=== PATIENT | male | born 2000 | race Caucasian/White ===

== ENCOUNTER 2018-10-12 05:06 | Emergency (ER) | payer OTHER, SELFPAY ==
--- NOTE | 2018-10-12 05:08 | W.ED.GENAD ---
Discharge Plan Disposition Patient Disposition: HOME Condition: Stable Discharge Details Chief Complaint: Laceration Clinical Impression: Laceration of forearm, left Primary Care Provider: Myrtle Muñoz ED Provider: Emanuel Sexton Home Meds and New Rx's Prescriptions: No Action No Known Home Meds RF: 0 Discharge Instructions Instructions: Laceration (ED) Additional Instructions: return to the emergency department in 7-10 days to have the wound evaluated for possible suture removal if you have redness spreading away from the wound or yellow/white discharge from the wound return to the emergency department sooner twice a day gently clean with soap and water and if the area gets dirty. If you have bleeding apply a pressure dressing Medical Decision Making pt here after he states he accidentaly sustained a cut to the anterior forearm just distal to the left elbow. Denies loc or hitting his head, states it happened on a piece of steel in his garage. States last tetanus vaccine 2-3 year ago. HAs a 4cm laceration to the above stated area with full rom of the elbow, doubt tendon injury and intact distal sensation so doubt nerve injury. Will suture close. HPI General Mode of arrival: ambulatory. Date/Time Provider Initiated Documentation: 10/12/18 05:07. Limitations to Documentation: no limitations. Information obtained by: patient. History of Present Illness 18 year old M presents to the emergency department with the chief complaint of left forearm laceration, described as mild, with intensity rated at 2. Quality is described as aching, and is localized to the left and upper extremity. Patient reports no radiation. Patient started experiencing this hour(s) (2) and it has been constant. No relieving factors improve symptom(s), No exacerbating factors reported . Patient did receive the following treatments prior to arrival, none Related Data Home Medications Medication Instructions Recorded Confirmed Unknown [No Known Home Meds] 10/12/18 10/12/18 Allergies Allergy/AdvReac Type Severity Reaction Status Date / Time No Known Allergies Allergy Unverified 10/12/18 05:21 Review of Systems Review of Systems All systems reviewed & are unremarkable except as noted in HPI and below Constitutional Denies chills and Denies fever(s) Cardiovascular Denies chest pain and Denies dyspnea Respiratory Denies cough and Denies dyspnea Gastrointestinal Denies abdominal pain, Denies nausea and Denies vomiting Endocrine Denies heat intolerance [facility] Social History Smoking/Tobacco Use Status: Never Alcohol Intake: current Alcohol Intake frequency: a few times a month Substance use type: does not use Additional Social history: unable to assess privately Exam Const General: no acute distress Orientation: alert HENMT Head: normal to inspection Ears: external ears normal General nose exam: external nose normal Mouth: moist mucous membranes Eyes General: appearance normal, both eyes and all related structures Neck Neck: normal visual inspection Resp Effort & Inspection: normal respiratory effort and able to speak in complete sentences Cardio Rate: regular rate Skin General skin exam: no rashes or lesions noted Neuro General: alert and oriented x3 Extrem General: full ROM and normal capillary refill Psych Mental Status: mental status grossly normal Procedures Laceration Laceration 1: Site: upper extremity Side (If applicable): left Size (cm): 4 Description: linear Depth: simple, single layer Local Anesthetic: Lidocaine 1% and with Epi Amount of anesthesia used (mL): 15 Pre-repair: wound explored and irrigated extensively Skin layer closed with: nylon Size (cm): 4-0 Number of sutures: 6 Technique: simple, interrupted
[2018-10-12 05:15] VITALS: PULSE 90; RESP 16; TEMP 36.5; O2SAT 99
--- NOTE | 2018-10-12 05:21 | ED.GENADUL_ITS ---
Discharge Plan Disposition Patient Disposition: HOME Condition: Stable Discharge Details Chief Complaint: Laceration Clinical Impression: Laceration of forearm, left Primary Care Provider: Myrtle Muñoz ED Provider: Emanuel Sexton Home Meds and New Rx's Prescriptions: No Action No Known Home Meds RF: 0 Discharge Instructions Instructions: Laceration (ED) Additional Instructions: return to the emergency department in 7-10 days to have the wound evaluated for possible suture removal if you have redness spreading away from the wound or yellow/white discharge from the wound return to the emergency department sooner twice a day gently clean with soap and water and if the area gets dirty. If you have bleeding apply a pressure dressing Medical Decision Making pt here after he states he accidentaly sustained a cut to the anterior forearm just distal to the left elbow. Denies loc or hitting his head, states it happened on a piece of steel in his garage. States last tetanus vaccine 2-3 year ago. HAs a 4cm laceration to the above stated area with full rom of the elbow, doubt tendon injury and intact distal sensation so doubt nerve injury. Will suture close. HPI General Mode of arrival: ambulatory . Date/Time Provider Initiated Documentation: 10/12/18 05:07 . Limitations to Documentation: no limitations . Information obtained by: patient . History of Present Illness 18 year old M presents to the emergency department with the chief complaint of left forearm laceration, described as mild, with intensity rated at 2. Quality is described as aching, and is localized to the left and upper extremity. Patient reports no radiation. Patient started experiencing this hour(s) (2) and it has been constant. No relieving factors improve symptom(s), No exacerbating factors reported . Patient did receive the following treatments prior to arrival, none Related Data Home Medications Medication Instructions Recorded Confirmed Unknown [No Known Home Meds] 10/12/18 10/12/18 Allergies Allergy/AdvReac Type Severity Reaction Status Date / Time No Known Allergies Allergy Unverified 10/12/18 05:21 Review of Systems Review of Systems All systems reviewed & are unremarkable except as noted in HPI and below Constitutional Denies chills and Denies fever(s) Cardiovascular Denies chest pain and Denies dyspnea Respiratory Denies cough and Denies dyspnea Gastrointestinal Denies abdominal pain, Denies nausea and Denies vomiting Endocrine Denies heat intolerance [facility] Social History Smoking/Tobacco Use Status: Never Alcohol Intake: current Alcohol Intake frequency: a few times a month Substance use type: does not use Additional Social history: unable to assess privately Exam Const General: no acute distress Orientation: alert HENMT Head: normal to inspection Ears: external ears normal General nose exam: external nose normal Mouth: moist mucous membranes Eyes General: appearance normal, both eyes and all related structures Neck Neck: normal visual inspection Resp Effort & Inspection: normal respiratory effort and able to speak in complete sentences Cardio Rate: regular rate Skin General skin exam: no rashes or lesions noted Neuro General: alert and oriented x3 Extrem General: full ROM and normal capillary refill Psych Mental Status: mental status grossly normal Procedures Laceration Laceration 1: Site: upper extremity Side (If applicable): left Size (cm): 4 Description: linear Depth: simple, single layer Local Anesthetic: Lidocaine 1% and with Epi Amount of anesthesia used (mL): 15 Pre-repair: wound explored and irrigated extensively Skin layer closed with: nylon Size (cm): 4-0 Number of sutures: 6 Technique: simple, interrupted
[2018-10-12 06:09] VITALS: BP 120/69; PULSE 90; RESP 16; TEMP 36.5; O2SAT 99
== END 2018-10-12 05:40 | disposition home or self-care (01) ==
PROVIDERS: Emergency Provider Emergency Medicine; PCP Nurse Practitioner Family
DX: S51.812A Laceration without foreign body of left forearm, initial encounter (principal); W26.9XXA Contact with unspecified sharp object(s), initial encounter
CPT/HCPCS: 12032